=== PATIENT | male | born 1960 | race Caucasian/White ===

== ENCOUNTER 2019-01-30 20:09 | Inpatient (IN) | payer OTHER, MEDICAID ==
[~2019-01-30] VITALS: Ht 180.3 cm; Wt 72.0 kg
[2019-01-30] MEDS ORDERED: ACETAMINOPHEN 325 MG TAB PO ONE (20:30)
[2019-01-30 21:20] LABS: Basophils # (auto) 0 uL; Basophils % (auto) 0.3 % (0.0-2.0); Eosinophils # (auto) 0.4 uL; Eosinophils % (auto) 4.5 % (0.0-7.0); Hemoglobin 11.1 g/dL (13.5-17.5); Lymphocytes # (auto) 0.6 uL; Lymphocytes % (auto) 7.2 % (10.0-50.0); Mean Corpuscular Hemoglobin 35.8 pg (28.0-32.0); Mean Corpuscular Hgb Conc. 34.7 g/dL (32.0-36.0); Platelet Count (auto) 246 10^3/uL (140-450); Red Cell Distribution Width 15.3 % (11.8-14.3)
[2019-01-30 21:33] LABS: INR 0.96 (0.9-1.15); Partial Thromboplastin Time 35.5 sec (23.64-32.05)
[2019-01-30 21:44] LABS: Albumin 2.9 g/dL (3.4-5.0); BUN/Creatinine Ratio 15.8; Potassium 3.4 mmol/L (3.5-5.1)
[2019-01-30 21:47] LABS: Bilirubin, Total 0.3 mg/dL (0.2-1.0); Total Protein 6.6 g/dL (6.4-8.2)
[2019-01-31] MEDS ORDERED: SODIUM CHLORIDE 0.9% 1,000 ML IV ONE (01:00)
[2019-01-31] MEDS ORDERED: CLINDAMYCIN 900MG IV 50 ML IV ONE (01:00)
[2019-01-31] MEDS ORDERED: KETOROLAC TROMETH 15 mg/ml 1ML VL IV ONE (01:45)
[2019-01-31 02:09] LABS: Alcohol, Urine < 3.0 mg/dL (0-5); Amphetamine Screen, Urine POSITIVE (NEGATIVE); Cannabinoid Screen, Urine NEGATIVE (NEGATIVE)
[2019-01-31 02:17] LABS: Barbiturate Scree,Urine NEGATIVE (NEGATIVE); Benzodiazephine Screen, Urine NEGATIVE (NEGATIVE); Cocaine Screen, Urine NEGATIVE (NEGATIVE); Opiate Scree,Urine NEGATIVE (NEGATIVE); Phencyclidine Screen, Urine NEGATIVE (NEGATIVE)
[2019-01-31] MEDS ORDERED: VANCOMYCIN PER PHARMACY 0 MG IV SCH (06:45)
[2019-01-31] MEDS ORDERED: ACETAMINOPHEN 500 MG TAB PO PRN (06:45)
[2019-01-31] MEDS ORDERED: ONDANSETRON HCL 4 MG/2 ML VIAL IV PRN (06:45)
[2019-01-31] MEDS ORDERED: CLINDAMYCIN 600MG IV 50 ML IV ONE ×2 (07:00→14:00)
[2019-01-31] MEDS: SODIUM CHLORIDE 0.9% 1,000 ML IV SCH ×2 (07:17→11:11)
[2019-01-31 07:47] LABS: Basophils # (auto) 0 uL; Eosinophils # (auto) 0.3 uL; Hemoglobin 10.4 g/dL (13.5-17.5); Lymphocytes # (auto) 0.8 uL; Neutrophils # (auto) 5.2 uL; White Blood Cell 7.3 10^3/uL (4.4-10.8)
[2019-01-31 07:51] LABS: Basophils % (auto) 0.5 % (0.0-2.0); Eosinophils % (auto) 3.9 % (0.0-7.0); Hematocrit 30.4 % (41.0-53.0); Lymphocytes % (auto) 11.6 % (10.0-50.0); Mean Corpuscular Hemoglobin 35.5 pg (28.0-32.0); Mean Corpuscular Hgb Conc. 34.3 g/dL (32.0-36.0); Mean Corpuscular Volume 103.3 fL (80.0-100.0); Monocytes % (auto) 13.3 % (0.0-12.0); Neutrophils % (auto) 70.7 % (37.0-80.0); Platelet Count (auto) 236 10^3/uL (140-450); Red Blood Cells 2.94 10^6/uL (4.5-5.90); Red Cell Distribution Width 15.1 % (11.8-14.3)
[2019-01-31 08:04] LABS: Albumin 2.4 g/dL (3.4-5.0); BUN/Creatinine Ratio 17.1; Calcium 7.8 mg/dL (8.5-10.1); Potassium 3.2 mmol/L (3.5-5.1)
[2019-01-31 08:06] LABS: Bilirubin, Total 0.4 mg/dL (0.2-1.0); Total Protein 5.9 g/dL (6.4-8.2)
--- NOTE | 2019-01-31 08:42 | NUR ---
MS admit from ER RUTH MATTHEW admitted to tele/MS after SBAR received. Patient oriented to Lamberto Cade, primary RN, unit, room, bed, and unit policies regarding patient care and visiting hours. Patient weighed by bedscale and encouraged to call if they need something. All questions and concerns addressed, patient verbalized understanding.
[2019-01-31] MEDS: cefTRIAXone 1GM/50ML D5W 50 ML IV SCH (11:11)
[2019-01-31] MEDS: VANCOMYCIN 1GM/250ML 250 ML IV SCH ×2 (12:14→20:56)
[2019-01-31] MEDS ORDERED: CLINDAMYCIN 600MG IV 50 ML IV SCH (14:00)
[2019-01-31] MEDS: HYDROcodone-ACET 5/325MG TAB PO PRN ×2 (14:19→18:43)
[2019-01-31 14:41] VITALS: BP 113/74
[2019-01-31] MEDS: CLINDAMYCIN 600MG IV 50 ML IV SCH ×2 (16:04→22:12)
[2019-01-31 16:36] VITALS: BP 110/69
[2019-01-31] MEDS: FOLIC ACID 1 MG, MULTIPLE VITAMIN 10 ML, MAGNESIUM SULF SDV 50% 8 MEQ, THIAMINE INJ 100... INJ SCH ×5 (17:26)
--- NOTE | 2019-01-31 18:12 | NUR ---
assessment Patient is a 58 year old male who is alert and oriented. Per patient he is homeless. Patient makes 1,300 per month. I have offered patient room and board. Patient is willing to accept resources. Janelle social media developer to provide patient with homeless resources and room and board resources. Addendum: 01/31/19 at 1814 by Maki WISE Amended: Links added.
--- NOTE | 2019-01-31 19:00 | NUR ---
Opening Shift Note Assumed care of patient, awake and alert. No S/S of distress/SOB or pain. Instructed on POC and to call for assist PRN, will continue to monitor for changes Q1hr and PRN.
[2019-01-31 22:00] VITALS: BP 96/58
[2019-02-01 05:00] VITALS: BP 122/80
[2019-02-01] MEDS: CLINDAMYCIN 600MG IV 50 ML IV SCH ×2 (05:33→14:00)
[2019-02-01 06:07] LABS: Potassium 3.1 mmol/L (3.5-5.1)
[2019-02-01 06:23] LABS: Albumin 2.3 g/dL (3.4-5.0); BUN/Creatinine Ratio 17.7; Bilirubin, Total 0.2 mg/dL (0.2-1.0); Calcium 7.7 mg/dL (8.5-10.1); Total Protein 5.7 g/dL (6.4-8.2)
--- NOTE | 2019-02-01 08:00 | NUR ---
AWAKE ALERT ORIENTED TIMES 4 DENIES ANY PAIN AT THIS TIME. RE PAGED PODIATRY CONSULT.
[2019-02-01 09:00] VITALS: BP 142/78
[2019-02-01] MEDS: cefTRIAXone 1GM/50ML D5W 50 ML IV SCH (09:01)
[2019-02-01] MEDS: VANCOMYCIN 1GM/250ML 250 ML IV SCH (09:23)
[2019-02-01] MEDS: HYDROcodone-ACET 5/325MG TAB PO PRN ×2 (09:23→14:01)
[2019-02-01] MEDS: SODIUM CHLORIDE 0.9% 1,000 ML IV SCH (09:23)
--- NOTE | 2019-02-01 09:25 | NUR ---
PATIENT AMBULATED WITH A WALKER TO BATH ROOM. HE STATED PAIN 8/10 THROBBING IN BOTH LEGS AND FEET. MEDICATED WITH NORCO FOR PAIN.
--- NOTE | 2019-02-01 10:30 | NUR ---
PATIENT VERBALIZED RELIEF OF PAIN AT THIS TIME.
[2019-02-01] MEDS ORDERED: POTASSIUM CHL 20 Meq TABLET PO ONE (12:00)
[2019-02-01] MEDS: FOLIC ACID 1 MG, MULTIPLE VITAMIN 10 ML, MAGNESIUM SULF SDV 50% 8 MEQ, THIAMINE INJ 100... INJ SCH ×5 (12:56)
[2019-02-01 13:00] VITALS: BP 127/68
--- NOTE | 2019-02-01 14:59 | NUR ---
Discharge instructions given as ordered. Encourage to follow up with PMD as instructed. All questions and concerns addressed. Patient verbalized understanding. Medication reconciliation form completed and copy given to patient. IV removed with catheter intact, pressure dressing applied. Patient taken to vehicle via wheelchair with all personal belongings accompanied by staff and No distress noted at time of departure.
== END 2019-02-01 15:00 | disposition home or self-care (01) | DRG 603 ==
LOC: ER 20:13 → OVERFLOW 20:14 → WEST WING 01-31 08:48
PROVIDERS: ADMIT Nurse Practitioner Family; ATTEND Family Medicine
DX: L03.115 Cellulitis of right lower limb (principal); E44.1 Mild protein-calorie malnutrition; L03.116 Cellulitis of left lower limb; R73.9 Hyperglycemia, unspecified; F19.10 Other psychoactive substance abuse, uncomplicated; Z59.0 Homelessness; L40.9 Psoriasis, unspecified; Z87.891 Personal history of nicotine dependence; Z72.89 Other problems related to lifestyle
CPT/HCPCS: 36415; 71045; 80053; 80307; 80320; 83036; 83605; 85025; 85610; 85730; 86141; 87040; 93005; 93970; 96365; 96366; 96375; G0378; J0696; J2405; J3490

== ENCOUNTER 2019-04-16 18:26 | Emergency (ER) | payer MEDICARE, MEDICAID ==
[~2019-04-16] VITALS: Ht 180.3 cm; Wt 68.0 kg
[2019-04-16 23:00] VITALS: BP 128/84
[2019-04-16 23:16] LABS: Basophils # (auto) 0.1 uL; Basophils % (auto) 1.2 % (0.0-2.0); Eosinophils # (auto) 0.1 uL; Eosinophils % (auto) 1.8 % (0.0-7.0); Hematocrit 37.7 % (41.0-53.0); Hemoglobin 12.5 g/dL (13.5-17.5); Lymphocytes # (auto) 1.2 uL; Lymphocytes % (auto) 15.2 % (10.0-50.0); Mean Corpuscular Hemoglobin 32.3 pg (28.0-32.0); Mean Corpuscular Hgb Conc. 33.2 g/dL (32.0-36.0); Mean Corpuscular Volume 97.3 fL (80.0-100.0); Monocytes # (auto) 0.6 uL; Neutrophils # (auto) 6.1 uL; Neutrophils % (auto) 74.8 % (37.0-80.0); Nucleated Red Blood Cells % 0.3 %; Platelet Count (auto) 297 10^3/uL (140-450); Red Blood Cells 3.88 10^6/uL (4.5-5.90); Red Cell Distribution Width 14.5 % (11.8-14.3); White Blood Cell 8.1 10^3/uL (4.4-10.8)
[2019-04-16 23:34] LABS: Albumin 2.9 g/dL (3.4-5.0); Anion Gap 8 (5-15); Blood Urea Nitrogen 12 mg/dL (7-18); Calcium 8.3 mg/dL (8.5-10.1); Carbon Dioxide 24 mmol/L (21-32); Chloride 102 mmol/L (98-107); Glucose 107 mg/dL (74-106); Potassium 3.8 mmol/L (3.5-5.1); Sodium 134 mmol/L (136-145)
[2019-04-16 23:37] LABS: Alanine Aminotransferase 12 U/L (16-61); Aspartate Aminotransferase 14 U/L (15-37); Blood Alcohol < 3.0 mg/dL (0-5); GFR African American 98 mL/min; GFR Non-African American 81 mL/min
[2019-04-16 23:39] LABS: Alkaline Phosphatase 85 U/L (45-117); Bilirubin, Total 0.2 mg/dL (0.2-1.0); Total Protein 7.5 g/dL (6.4-8.2)
== END 2019-04-17 01:15 | disposition home or self-care (01) ==
LOC: ER 18:29
DX: S09.90XA Unspecified injury of head, initial encounter (principal); J44.9 Chronic obstructive pulmonary disease, unspecified; W06.XXXA Fall from bed, initial encounter; Y93.89 Activity, other specified; Y99.8 Other external cause status; Y92.89 Other specified places as the place of occurrence of the external cause
CPT/HCPCS: 36415; 70450; 70486; 80053; 80320; 85025

== ENCOUNTER → 2020-03-04 | Emergency (ER) | payer MEDICARE, OTHER ==
[~2020-03-04] VITALS: Ht 182.9 cm; Wt 65.8 kg
[~2020-03-04] MED LIST: KETOROLAC TROMETH 30 MG/ML 1ML VIAL IV ONE; METOCLOPRAMIDE HCL 5MG/ml INJ 2ml VIAL IV ONE; SODIUM CHLORIDE 0.9% 1,000 ML IV ONE
[2020-03-04 14:39] VITALS: BP 133/86
[2020-03-04 16:07] LABS: Basophils # (auto) 0.1 10 ^3/uL (0-0.2); Basophils % (auto) 0.7 % (0.0-2.0); Eosinophils # (auto) 1.1 10 ^3/uL (0-0.8); Eosinophils % (auto) 13.8 % (0.0-7.0); Hematocrit 35.8 % (41.0-53.0); Hemoglobin 11.6 g/dL (13.5-17.5); Lymphocytes # (auto) 1.1 10 ^3/uL (0.4-5.4); Lymphocytes % (auto) 13.8 % (10.0-50.0); Mean Corpuscular Hemoglobin 29.3 pg (28.0-32.0); Mean Corpuscular Hgb Conc. 32.4 g/dL (32.0-36.0); Mean Corpuscular Volume 90.5 fL (80.0-100.0); Monocytes # (auto) 0.6 10 ^3/uL (0-1.3); Monocytes % (auto) 8.1 % (0.0-12.0); Neutrophils # (auto) 4.9 10 ^3/uL (1.6-8.6); Neutrophils % (auto) 63.6 % (37.0-80.0); Platelet Count (auto) 333 10^3/uL (140-450); Red Blood Cells 3.96 10^6/uL (4.5-5.90); Red Cell Distribution Width 16.8 % (11.8-14.3); White Blood Cell 7.7 10^3/uL (4.4-10.8)
[2020-03-04 16:22] LABS: Albumin 2.2 g/dL (3.4-5.0); BUN/Creatinine Ratio 9.6; Calcium 8.3 mg/dL (8.5-10.1); Magnesium 1.9 mg/dL (1.6-2.6); Potassium 4.4 mmol/L (3.5-5.1)
[2020-03-04 16:25] LABS: Bilirubin, Total 0.2 mg/dL (0.2-1.0); Total Protein 7.3 g/dL (6.4-8.2)
== END | disposition home or self-care (01) ==
LOC: ER 13:17
DX: L03.116 Cellulitis of left lower limb (principal); L03.115 Cellulitis of right lower limb; L40.9 Psoriasis, unspecified; G89.4 Chronic pain syndrome
CPT/HCPCS: 36415; 71045; 80053; 83735; 84443; 85025; 87040; 87205; 93005; 96374; 96375; 99285; J1885; J2765

== ENCOUNTER 2021-12-06 16:10 | Emergency (ER) | payer MEDICARE, OTHER ==
[~2021-12-06] VITALS: Ht 182.9 cm; Wt 72.6 kg
[2021-12-06] MEDS ORDERED: LIDOCAINE 1% HCL (LOCAL ANESTH.) INJ 20ML MDV IJ ONE (17:15)
[2021-12-06] MEDS ORDERED: oxyCODONE ER 10 MG TAB PO ONE (19:30)
[2021-12-06] MEDS ORDERED: ERYTHROMY OPTH OINT 5mg/gm 1gm or 3.5gm tube OP ONE (19:30)
[2021-12-06 20:30] VITALS: BP 135/70
== END 2021-12-06 20:57 ==
LOC: ER 16:10 → EDBD 16:10 → EDUNIT# 16:10 → ER 20:57
DX: S01.112A Laceration without foreign body of left eyelid and periocular area, initial encounter (principal); J44.9 Chronic obstructive pulmonary disease, unspecified; I10 Essential (primary) hypertension; F15.10 Other stimulant abuse, uncomplicated; Z59.00 Homelessness unspecified; W20.8XXA Other cause of strike by thrown, projected or falling object, initial encounter; Y93.89 Activity, other specified; Y92.89 Other specified places as the place of occurrence of the external cause; Y99.8 Other external cause status
CPT/HCPCS: 12013; 70450; 93005; 99285; J2001

== ENCOUNTER 2022-02-03 06:36 | Emergency (ER) | payer MEDICARE, OTHER ==
[~2022-02-03] VITALS: Ht 182.9 cm; Wt 72.7 kg
[2022-02-03] MEDS ORDERED: TETANUS-DIPTH-ACEL PERTUSSIS 0.5ML SYR Tdap IM ONE (07:45)
[2022-02-03] MEDS ORDERED: cefTRIAXone 1GM/50ML D5W 50 ML IV ONE (07:45)
[2022-02-03 14:00] VITALS: BP 125/66
[2022-02-03] MEDS ORDERED: LIDOCAINE 1% (LOCAL ANESTH.) PF 5ml SDV ONE (15:23)
[2022-02-03] MEDS ORDERED: CLIN300C8 PO (16:14)
[2022-02-03] MEDS ORDERED: CEPH-509 PO (16:14)
== END 2022-02-03 17:14 | disposition home or self-care (01) ==
LOC: EDBD 06:36 → ER 06:36
DX: S81.812A Laceration without foreign body, left lower leg, initial encounter (principal); W22.8XXA Striking against or struck by other objects, initial encounter; Y93.89 Activity, other specified; Y92.89 Other specified places as the place of occurrence of the external cause; Y99.8 Other external cause status
CPT/HCPCS: 12004; 70450; 71250; 72125; 73590; 74176; 90471; 90715; 96365; 99285; J0696